=== PATIENT | female | born 1965 | race Caucasian/White ===

== ENCOUNTER 2020-08-05 17:00 | Emergency (ER) | payer OTHER ==
[~2020-08-05] VITALS: Ht 160 cm; Wt 59.0 kg
[~2020-08-05 17:00] MED LIST: CIPRO750 MG PO; CLONAZEPAM1 MG PO; DOCUSATE SODIU100 MG PO; EVISTA60 MG PO; GABAPENTIN600 MG PO; METHYLPRED4 MG/DOSE- PO; NEURONTIN PO; NEURONTIN300 MG PO; PERCOCET 5/3251 TAB PO; TOPAMAX25 M1 PO
[2020-08-05] MEDS ORDERED: CHILDREN'S ASPI81 MG PO (17:11)
[2020-08-05] MEDS ORDERED: LIPITOR40 M1 PO (17:11)
[2020-08-05] MEDS ORDERED: TOPAMAX25 MG PO (17:11)
[2020-08-05] MEDS ORDERED: CALCIUM500 M1 PO (17:12)
[2020-08-05] MEDS ORDERED: ACIDOPHILUS1 EACH PO (17:12)
[2020-08-05] MEDS ORDERED: FOSAMAX70 MG PO (17:13)
[2020-08-05] MEDS ORDERED: RENA-VITE RX T1 EACH PO (17:14)
[2020-08-05] MEDS ORDERED: MACROBID 100 M100 MG PO (19:31)
[2020-08-05] MEDS ORDERED: PYRIDIUM100 M1 PO (19:31)
== END 2020-08-05 20:19 | disposition home or self-care (01) ==
LOC: ER 17:00
DX: R30.0 Dysuria (principal); N39.0 Urinary tract infection, site not specified

== ENCOUNTER 2021-09-21 15:59 | Emergency (ER) | payer OTHER ==
[~2021-09-21] VITALS: Ht 160 cm; Wt 61.2 kg
[~2021-09-21 15:59] MED LIST changes: +ACIDOPHILUS1 EACH PO; +CALCIUM500 M1 PO; +CHILDREN'S ASPI81 MG PO; +FOSAMAX70 MG PO; +LIPITOR40 M1 PO; +MACROBID 100 M100 MG PO; +PYRIDIUM100 M1 PO; +RENA-VITE RX T1 EACH PO; +TOPAMAX25 MG PO
[2021-09-21] MEDS ORDERED: SYSTANE 0.3-0.1 EACH (16:52)
[2021-09-21] MEDS ORDERED: LEXAPRO5 MG (16:52)
[2021-09-21] MEDS ORDERED: XELPROS2.5 ML (16:52)
[2021-09-21] MEDS ORDERED: PEPCID AC20 MG PO (20:48)
[2021-09-21] MEDS ORDERED: LEVSIN/SL0.125 MG SL (20:48)
[2021-09-21] MEDS ORDERED: CIPRO500 MG PO (20:48)
== END 2021-09-21 22:01 | disposition home or self-care (01) ==
LOC: ER 15:59
DX: R19.7 Diarrhea, unspecified (principal); R10.84 Generalized abdominal pain; Z88.2 Allergy status to sulfonamides